=== PATIENT | male | born 1970 | race Caucasian/White ===

== ENCOUNTER 2020-01-29 08:50 | Day surgery (SDC) | payer OTHER ==
--- NOTE | 2020-01-29 07:46 | HP ---
DATE OF SURGERY: 01/29/2020 HISTORY OF PRESENT ILLNESS: The patient is a 49 year old who is a patient of Dr. Perez's ten years ago had prior history of perforated ulcer. Denies any prior colonoscopy. No change in bowel movements. No bloody stools currently. PAST MEDICAL HISTORY: Arthritis. PAST SURGICAL HISTORY: Perforated duodenal ulcer worked on by Dr. Perez in the past. MEDICATIONS: Meloxicam, gabapentin, Tizanidine. ALLERGIES: NKDA. POLLEN. DUST. FAMILY HISTORY: Hypertension, arthritis. SOCIAL HISTORY: One pack per day smoker, denies alcohol abuse. REVIEW OF SYSTEMS: Fourteen systems reviewed. No chest pain or palpitations. Other systems negative or noncontributory as above and per preadmission questionnaire. PHYSICAL EXAMINATION: GENERAL: No acute distress. HEENT: Sclerae nonicteric. NECK: No JVD. CHEST: Equal excursion, nonlabored breathing. CVS: Regular rhythm. ABDOMEN: Soft. No peritoneal signs. EXTREMITIES: No significant edema. NEURO: Alert, oriented, moving extremities symmetrically. No gross motor deficits noted. PSYCH: Appropriate mood and affect. RECTAL: Deferred timed to endoscopy exam. IMPRESSION: No prior colonoscopy. He is in need of screening colonoscopy. He had been offered upper endoscopy as he had a perforated ulcer in the past for further evaluation. However, he declined at this time. He is only interested in screening colonoscopy. He is shown the risk sheet explained the procedure in detail but not limited to bleeding or infection, risk of bowel injury or perforation possibly requiring open procedure, risk of missed or nondiagnosis or incomplete exam possibly requiring barium enema, other studies or procedures, general risk of anesthesia or sedation. He understands and agrees with the planned procedure, will proceed with outpatient screening colonoscopy.
[~2020-01-29 08:50] MED LIST: DIPRIVAN 200 MG/20 ML IV ONE
[2020-01-29] MEDS ORDERED: Lactated Ringers 1,000 ML IV ONE (09:35)
[2020-01-29] MEDS ORDERED: Lactated Ringers 1,000 ML IV SCH (10:00)
[2020-01-29 12:10] VITALS: BP 99/66; PULSE 76; O2SAT 98
--- NOTE | 2020-01-29 12:44 | OP ---
SURGERY DATE/TIME: 01/29/2020 1033 PREOPERATIVE DIAGNOSIS: Screening colonoscopy. POSTOPERATIVE DIAGNOSES: 1) Small early polyp versus hyperplastic lesion rectosigmoid colon x2. 2) Mild diverticulosis. 3) Small internal hemorrhoids. 4) Fair bowel prep. 5) Withdrawal time 8 minutes. 6) ASA Class II. 7) Overall prep fair. PROCEDURE: Colonoscopy to cecum with hot biopsy removal of small early polyp versus hyperplastic lesion rectosigmoid colon x2. SURGEON: Dr. Patrick Estrella. ANESTHESIA: MAC. ESTIMATED BLOOD LOSS: Minimal. INDICATIONS: As noted above. Risks and benefits explained in detail but not limited to and consent obtained. DESCRIPTION OF PROCEDURE AND FINDINGS: The patient is taken to the endoscopy suite. MAC anesthesia introduced. After official time out and no disagreement with planned procedure, digital rectal exam did not reveal any rectal masses. He did have some internal hemorrhoids. Video colonoscope inserted and passed up the tortuous sigmoid, descending, transverse and ascending colon. With external pressure the scope was able to be passed to the cecum, Appendiceal orifice and valve well visualized and photo documented. He had a lot of foamy, a little bit of liquidy semi-solid stool suction irrigated as clear as possible just slightly limiting the exam for very small lesions and overall fair bowel prep. The scope is slowly and carefully withdrawn over the next 8 minutes. There were no signs of any large polyps, masses or obstructing lesions. There were two small early polyps versus hyperplastic lesion in rectosigmoid colon removed with hot biopsy with brief bursts of cautery. Otherwise he had some small internal hemorrhoids. He had some mild diverticulosis. The scope is withdrawn. The patient tolerated the procedure well. There were no immediate complications. There was no family here to discuss the findings with. I will see him back in the office next week to go over the results.
== END 2020-01-29 12:04 | disposition home or self-care (01) ==
LOC: SDC 08:50
PROVIDERS: ATTEND Surgery
DX: Z12.11 Encounter for screening for malignant neoplasm of colon (principal); K57.30 Diverticulosis of large intestine without perforation or abscess without bleeding; K64.4 Residual hemorrhoidal skin tags; K64.8 Other hemorrhoids; K63.5 Polyp of colon
CPT/HCPCS: 88305; J2704